=== PATIENT | female | born 1995 | race Caucasian/White ===

== ENCOUNTER 2021-04-02 12:22 | Emergency (ER) | payer OTHER ==
[2021-04-02 13:38] LABS: HEMOGLOBIN 13.2 gm/dl (12.3-15.3); RED BLOOD COUNT 4.62 M/UL (4.00-5.10); WHITE BLOOD COUNT 2.9 K/UL (4.5-11.0)
[2021-04-02 14:08] LABS: BUN/CREATININE RATIO 12 (0-10)
[2021-04-02] MEDS ORDERED: TAMIFLU 75 MG C75 MG PO (15:57)
== END 2021-04-02 16:20 | disposition home or self-care (01) ==
LOC: ER1 12:22
PROVIDERS: Physician Assistant
DX: J10.1 Influenza due to other identified influenza virus with other respiratory manifestations (principal); Z90.49 Acquired absence of other specified parts of digestive tract; Z20.822 Contact with and (suspected) exposure to COVID-19
CPT/HCPCS: 0240U; 71045; 80053; 82550; 82553; 83605; 83874; 84484; 84703; 85025; 85379; 87081; 87880; 93005; 99284; J1885; J7030; Q9967

== ENCOUNTER → 2021-05-13 | Outpatient (CLI) | payer OTHER ==
[~2021-05-13] MED LIST: AMITRIPTYLINE H50 MG PO; HYDROCODONE-AC1 EACH PO; IBUPROFEN600 MG PO; NEURONTIN600 MG PO; ROPINIROLE HCL2 MG PO; TAMIFLU 75 MG C75 MG PO; XANAX1 MG PO; ZOLOFT100 MG PO
[2021-05-13 12:15] LABS: HEMOGLOBIN 12.2 gm/dl (12.3-15.3); RED BLOOD COUNT 4.37 M/UL (4.00-5.10); WHITE BLOOD COUNT 5.1 K/UL (4.5-11.0)
[2021-05-13 12:46] LABS: BUN/CREATININE RATIO 17 (0-10)
== END ==
LOC: OPSV2 11:19
PROVIDERS: Anesthesiology; Obstetrics & Gynecology
DX: Z01.812 Encounter for preprocedural laboratory examination (principal); N80.9 Endometriosis, unspecified
CPT/HCPCS: 36415; 80048; 81001; 85025

== ENCOUNTER → 2021-05-16 | Day surgery (SDC) | payer OTHER | END | disposition home or self-care (01) | LOC: OR 05:06 | DX: N94.10 Unspecified dyspareunia (principal); N94.6 Dysmenorrhea, unspecified; N97.9 Female infertility, unspecified; K21.9 Gastro-esophageal reflux disease without esophagitis; F41.9 Anxiety disorder, unspecified; F32.A Depression, unspecified; Z79.899 Other long term (current) drug therapy | CPT/HCPCS: 36415; 84702; C1769; J0690; J1100; J2001; J2250; J2405; J2704; J2710; J3010; J7120; Q9968 ==